=== PATIENT | male | born 1955 | race Caucasian/White ===

== ENCOUNTER → 2021-03-12 | Outpatient (CLI) | payer BC ==
[~2021-03-12] MED LIST: ASPIRIN EC81 MG PO; AVODART 0.5 MG0.5 MG PO; COQ-10100 MG PO; GLIPIZIDE5 MG PO; GLUCOPHAGE XR500 M1 PO; LOSARTAN-HCTZ1 EAC2 PO; NORVASC 5 MG TAB5 MG PO; SIMVASTATIN20 MG PO; VITAMIN D21250 MCG PO
== END ==
LOC: KOH-I 09:45
DX: N20.0 Calculus of kidney (principal); N40.0 Benign prostatic hyperplasia without lower urinary tract symptoms
CPT/HCPCS: 74176

== ENCOUNTER → 2021-11-04 | Outpatient (CLI) | payer MEDICARE, BC | LOC: CT 13:34 | DX: R06.02 Shortness of breath (principal); E11.9 Type 2 diabetes mellitus without complications; I10 Essential (primary) hypertension; J98.11 Atelectasis | CPT/HCPCS: 36415; 71270; 82565; 84520; Q9967 ==

== ENCOUNTER → 2021-11-07 | Outpatient (CLI) | payer MEDICARE, BC | LOC: HEART 5 09:55 | DX: R06.02 Shortness of breath (principal) | CPT/HCPCS: 94060; 94729 ==

== ENCOUNTER → 2022-01-21 | Day surgery (SDC) | payer MEDICARE, BC ==
[~2022-01-21] MED LIST changes: +XARELTO20 MG PO
[2022-01-21 17:18] LABS: BODY FLUID SOURCE BRONCHIAL LAVAGE; RBC (MANUAL) 1940; WBC (MANUAL) 62
== END | disposition home or self-care (01) ==
LOC: OR 11:22
PROVIDERS: Internal Medicine Pulmonary Disease
DX: J98.11 Atelectasis (principal); R05.3 Chronic cough; I25.10 Atherosclerotic heart disease of native coronary artery without angina pectoris; E78.5 Hyperlipidemia, unspecified; M10.9 Gout, unspecified; I10 Essential (primary) hypertension; I25.2 Old myocardial infarction; E11.9 Type 2 diabetes mellitus without complications; R94.2 Abnormal results of pulmonary function studies; Z86.16 Personal history of COVID-19; Z88.3 Allergy status to other anti-infective agents; Z79.82 Long term (current) use of aspirin; Z79.84 Long term (current) use of oral hypoglycemic drugs; Z79.02 Long term (current) use of antithrombotics/antiplatelets; Z79.899 Other long term (current) drug therapy
CPT/HCPCS: 82962; 87015; 87070; 87116; 87205; 87206; 87252; 89051; J0690; J1100; J2001; J2370; J2405; J2704; J3010; P9045

== ENCOUNTER → 2022-02-04 | Outpatient (CLI) | payer MEDICARE, BC | LOC: ECHO 09:44 | DX: J98.11 Atelectasis (principal); R06.02 Shortness of breath; I08.1 Rheumatic disorders of both mitral and tricuspid valves; I27.20 Pulmonary hypertension, unspecified | CPT/HCPCS: ECHO; 93306 ==